=== PATIENT | male | born 1995 | race Caucasian/White ===

== ENCOUNTER 2023-09-02 06:15 | Emergency (ER) | payer MEDICAID ==
[~2023-09-02] VITALS: Ht 180.3 cm; Wt 88.5 kg
[2023-09-02 06:24] VITALS: BP_SYST 127; PULSE 84; RESP 14; TEMP 97.4; O2SAT 99
[2023-09-02 06:32] VITALS: BP_SYST 127; PULSE 84; RESP 14; TEMP 97.4; O2SAT 99
[2023-09-02] MEDS ORDERED: IBUP-1969 PO (07:01)
[2023-09-02] MEDS: ACETAMINOPHEN 500 MG TABLET PO ONE (07:17)
[2023-09-02] MEDS: IBUPROFEN 600 MG TABLET PO ONE (07:20)
== END 2023-09-02 07:23 | disposition home or self-care (01) ==
LOC: SED 06:15
DX: S63.591A Other specified sprain of right wrist, initial encounter (principal); S60.511A Abrasion of right hand, initial encounter; Z79.899 Other long term (current) drug therapy; Y04.8XXA Assault by other bodily force, initial encounter; Y93.89 Activity, other specified; Y92.89 Other specified places as the place of occurrence of the external cause; Y99.8 Other external cause status
CPT/HCPCS: 99284